=== PATIENT | male | born 1965 | race Hispanic/Latino ===

== ENCOUNTER 2023-11-01 15:00 | Inpatient (IN) | payer OTHER, BC ==
[~2023-11-01] VITALS: Ht 170.2 cm; Wt 97.6 kg
[2023-11-01 15:41] LABS: BASOPHILS # (AUTO) 0.04 K/uL (0.00-0.20); BASOPHILS % (AUTO) 0.4 % (0.0-5.0); EOSINOPHILS # (AUTO) 0.12 K/uL (0.00-0.70); EOSINOPHILS % (AUTO) 1.1 % (0.0-8.0); HEMATOCRIT 43.5 % (42-54); IMMATURE GRANULOCYTE ABSOLUTE 0.04 K/uL (0-1); LYMPHOCYTES # (AUTO) 2.1 K/uL (1.0-4.8); LYMPHOCYTES % (AUTO) 18.9 % (21.0-51.0); MEAN CORPUSCULAR HEMOGLOBIN 22.6 pg (27.0-33.0); MEAN CORPUSCULAR HGB CONC 30.3 g/dL (32.0-36.0); MEAN CORPUSCULAR VOLUME 74.6 fL (79-99); MONOCYTES % (AUTO) 9.5 % (3.0-13.0); NEUTROPHILS # (AUTO) 7.6 K/uL (1.8-7.7); NEUTROPHILS % (AUTO) 69.7 % (40.0-77.0); PLATELET COUNT (AUTO) 377 K/uL (130-400); RED BLOOD CELL COUNT(AUTO) 5.83 MIL/uL (4.50-6.20); RED CELL DISTRIBUTION WIDTH 18.4 % (11.0-15.5); WHITE BLOOD COUNT (AUTO) 10.8 K/uL (4.8-10.8)
[2023-11-01 15:46] LABS: APPEARANCE,URINE CLEAR (CLEAR); BILIRUBIN,URINE NEGATIVE (NEGATIVE); COLOR,URINE YELLOW (YELLOW); GLUCOSE, URINE (UA) NEGATIVE (NEGATIVE); KETONES,URINE NEGATIVE (NEGATIVE); LEUKOCYTE ESTERASE ,URINE NEGATIVE Leu/uL (NEGATIVE); NITRATE,URINE NEGATIVE (NEGATIVE); OCCULT BLOOD,URINE NEGATIVE (NEGATIVE); PH,URINE 5.5 (5.0-8.0); PROTEIN,URINE 20 mg/dL (NEGATIVE); UROBILINOGEN,URINE 0.2 mg/dL (0.2-1.0)
[2023-11-01 15:49] VITALS: BP 154/72; PULSE 76; RESP 16
[2023-11-01 15:51] LABS: ADD UA MICROSCOPIC YES
[2023-11-01 15:51] LABS: INR <= 0.93 (0.85-1.15); PROTHROMBIN TIME 10.4 SEC (9.6-11.6)
[2023-11-01 15:52] LABS: PARTIAL THROMBOPLASTIN TIME 28.6 SEC (26.3-35.5)
[2023-11-01 15:53] LABS: BACTERIA,URINE RARE /HPF (None Seen); CALCIUM OXALATE CRYSTALS,UR RARE /LPF (None Seen); MUCUS,URINE MOD LPF (None Seen); SQUAMOUS EPITHELIAL CELL,UR RARE /HPF (0-2)
[2023-11-01 15:55] LABS: ALBUMIN 3.7 g/dL (3.5-5.0); CREATININE 0.9 mg/dL (0.5-1.5)
[2023-11-01] MEDS ORDERED: HYDR12.54 PO (16:09)
[2023-11-03] VITALS (37 sets, daily range): BP systolic 103–159; BP diastolic 50–88; PULSE 54–84; RESP 11–22
[2023-11-03] MEDS: LACTATED RINGERS 1000ML 1,000 ML IV ONE
[2023-11-03] MEDS ORDERED: FENTANYL CITRATE PF 50 MCG/1 ML 2ML VIAL ONE ×3 (06:49→10:05)
[2023-11-03] MEDS ORDERED: MIDAZOLAM HCL 1 MG/ML 2ML VIAL ONE (06:49)
[2023-11-03] MEDS ORDERED: PROPOFOL 10 MG/ML 20ML VIAL IV ONE ×2 (06:59→07:24)
[2023-11-03] MEDS ORDERED: ROCURONIUM BROMIDE 10MG/1ML 5ML VL ONE ×2 (07:00→08:14)
[2023-11-03] MEDS ORDERED: LIDOCAINE 2%-EPI 1:200,000 20 ML VIAL IJ ONE (07:04)
[2023-11-03] MEDS ORDERED: ROPIVACAINE 0.5% 5MG/ML 30ML ONE (07:04)
[2023-11-03] MEDS: CLINDAMYCIN IVPB 900MG/50ML 50 ML IV ONE (07:16)
[2023-11-03] MEDS: TRANEXAMIC ACID 1000MG/10ML ONE (08:03)
[2023-11-03] MEDS: CEFAZOLIN SODIUM 1 GM VIAL ONE (08:10)
[2023-11-03] MEDS ORDERED: CEFAZOLIN SODIUM 1 GM VIAL ONE (08:16)
[2023-11-03] MEDS ORDERED: DEXAMETHASONE SOD PHOSPHATE 10MG/ML 1ML VIAL ONE (08:27)
[2023-11-03] MEDS ORDERED: ONDANSETRON 4MG INJ ONE (08:28)
[2023-11-03] MEDS ORDERED: KETAMINE 50MG/ML SYRINGE 50 MG/ML DISP.SYRIN ONE (08:56)
[2023-11-03] MEDS ORDERED: GLYCOPYRROLATE 0.2 MG/ML 5 ML VIAL ONE (09:43)
[2023-11-03] MEDS ORDERED: NEOSTIGMINE METHYLSULFATE 1MG/ML IV ONE (09:44)
[2023-11-03] MEDS ORDERED: CYCLOBENZAPRINE HCL 10 MG TABLET PO PRN (10:00)
[2023-11-03] MEDS ORDERED: POTASSIUM CHLORIDE 20MEQ/100ML 100 ML IV PRN (10:00)
[2023-11-03] MEDS ORDERED: KCL 20 MEQ ERTAB PO PRN (10:00)
[2023-11-03] MEDS ORDERED: TRAMADOL HCL 50 MG TABLET PO PRN (10:00)
[2023-11-03] MEDS ORDERED: FERROUS FUMARATE 324 MG TABLET PO PRN (10:00)
[2023-11-03] MEDS ORDERED: POTASSIUM CHLORIDE 10% ELIXIR 20 MEQ/15 ML UDCUP PO PRN (10:00)
[2023-11-03] MEDS ORDERED: CALCIUM CARB 500MG PO PRN (10:00)
[2023-11-03] MEDS ORDERED: DiphenhydrAMINE HCL 50 MG/ML VIAL IVP PRN (10:00)
[2023-11-03] MEDS ORDERED: ONDANSETRON 4MG INJ IVP PRN (10:00)
[2023-11-03] MEDS ORDERED: MAGNESIUM SULFATE 4.06 MEQ/ML ***TPN USE ONLY IJ ONE (10:07)
[2023-11-03] MEDS: ONDANSETRON 4MG INJ ONE (11:03)
[2023-11-03] MEDS: MEPERIDINE-PF 25 MG/ML SYG ONE ×2 (11:04→11:05)
[2023-11-03] MEDS: HYDROCODONE/ACETAMINOPHEN 10/325 MG TAB ONE (12:39)
[2023-11-03] MEDS: 0.9%NACL 50ML 50 ML IV ONE (15:30)
[2023-11-03] MEDS: CEFAZOLIN SODIUM 2 GM VIAL IVPB SCH (15:57)
[2023-11-03] MEDS: DOCUSATE SODIUM 100 MG CAP PO SCH (21:48)
[2023-11-03] MEDS: GABAPENTIN 100 MG CAPSULE PO SCH (21:49)
[2023-11-03] MEDS: HYDROCODONE/ACETAMINOPHEN 5/325 MG TAB PO PRN (21:49)
[2023-11-03] MEDS: 0.9%NACL 1000ML 1,000 ML IV SCH (21:51)
[2023-11-04] VITALS: BP 105/51; PULSE 63; RESP 18
[2023-11-04] MEDS: KETOROLAC 15MG/ML VIAL (15MG/ML) IV SCH (01:33)
[2023-11-04 04:00] VITALS: BP 113/57; PULSE 57; RESP 20
[2023-11-04 04:00] LABS: HEMATOCRIT 31.6 % (42-54); RED BLOOD CELL COUNT(AUTO) 4.39 MIL/uL (4.50-6.20); RED CELL DISTRIBUTION WIDTH 17.3 % (11.0-15.5); WHITE BLOOD COUNT (AUTO) 14.7 K/uL (4.8-10.8)
[2023-11-04 04:07] LABS: CREATININE 1.1 mg/dL (0.5-1.5); POTASSIUM 4.5 mmol/L (3.5-5.1)
[2023-11-04 08:00] VITALS: BP 125/66; PULSE 64; RESP 18
[2023-11-04] MEDS: HYDROCHLOROTHIAZIDE 25 MG TABLET PO SCH (08:18)
[2023-11-04] MEDS: POLYETHYLENE GLYCOL 3350 17 GM POWD.PACK PO SCH (08:19)
[2023-11-04] MEDS: ASPIRIN 325MG EC TAB PO SCH (08:19)
[2023-11-04 11:00] VITALS: BP 112/59; PULSE 72; RESP 18
[2023-11-04] MEDS: KETOROLAC 15MG/ML VIAL (15MG/ML) IV PRN (13:24)
[2023-11-04 16:00] VITALS: BP 126/72; PULSE 68; RESP 18
[2023-11-04 20:00] VITALS: BP 125/62; PULSE 79; RESP 20
[2023-11-05] VITALS: BP 114/70; PULSE 77; RESP 18
[2023-11-05 04:29] VITALS: BP_SYST 104; BP_SYST 113; BP_DIAS 56; BP_DIAS 57; PULSE 57; PULSE 69; RESP 18; RESP 20
[2023-11-05 08:00] VITALS: BP 109/62; PULSE 73; RESP 20
[2023-11-05] MEDS: LACTULOSE 20 GM/30 ML UDCUP PO ONE (11:04)
[2023-11-05 12:00] VITALS: BP 108/66; PULSE 85; RESP 20
[2023-11-05] MEDS ORDERED: CYCL-309 PO (12:00)
[2023-11-05] MEDS ORDERED: GABA100C PO (12:00)
[2023-11-05] MEDS ORDERED: DOCU-116 PO (12:00)
[2023-11-05] MEDS ORDERED: HYDR-4060 PO (12:00)
[2023-11-05] MEDS ORDERED: ASPI-891 PO (12:00)
[2023-11-06] MEDS ORDERED: BISACODYL 10 MG SUPP.RECT RC PRN (10:00)
== END 2023-11-05 15:30 | DRG 470 ==
LOC: DAHIP 11-03 05:57 → 4AH 11-03 16:45
PROVIDERS: ADMIT Student in an Organized Health Care Education/Training Program; ATTEND Student in an Organized Health Care Education/Training Program
PROC: 0SR906A Replacement of Right Hip Joint with Oxidized Zirconium on Polyethylene Synthetic Substitute, Uncemented, Open Approach (ICD-10-PCS; principal; 2023-11-03 08:17)
DX: M87.851 Other osteonecrosis, right femur (principal); D62 Acute posthemorrhagic anemia; M21.751 Unequal limb length (acquired), right femur
CPT/HCPCS: 36415; 73503; 73521; 80048; 81001; 82040; 84134; 85025; 85027; 85610; 85730; 86140; 87088; 87641; C1776; G0378; J0690; J1100; J1885; J2175; J2250; J2405; J2704; J2710; J2795; J3010; J3475; J3490; J7120; A4215; A4221; A4222; A4223; A4649; A4663; A4930; A5120; A6255; G0168

== ENCOUNTER 2024-10-25 18:31 | Emergency (ER) | payer BC, OTHER ==
[~2024-10-25] VITALS: Ht 172.7 cm; Wt 95.3 kg
[~2024-10-25 18:31] MED LIST: ASPI-891 PO; CYCL-309 PO; DOCU-116 PO; GABA100C PO; HYDR-4060 PO; HYDR12.54 PO
--- NOTE | 2024-10-25 19:54 | HMCIMG ---
Exam Type: CT cervical spine without contrast Clinical Information: severe right sided neck pain radiating to elbow Comparison: None Technique: Spiral axial images were performed from the base of the skull down to the thoracic vertebral bodies. Both sagittal and coronal reconstructions were performed. CT Dose Index (CTDI): 12.85 mGy Dose Length Product (DLP): 282.6 total Findings: There is normal alignment of the vertebral bodies. There are no fractures. No facet hypertrophy. The prevertebral soft tissues are normal. IMPRESSION: NORMAL CERVICAL SPINE CT. This study was performed using dose reduction techniques to include automated exposure control and/or adjustment of the mA and/or kV according to patient size.
--- NOTE | 2024-10-25 20:12 | ERN ---
ED Note History of Present Illness Stated Complaint: RIGHT SIDE PAIN Chief Complaint: Shoulder Injury/Pain Time Seen by MD: 19:09 Dictation: This is a 59-year-old male who stated that he fell as he was carrying a big package and tripped on a cement or concrete floor. This happened a few days ago and he had experienced some pain in the right shoulder and scapular area which got worse going all the way to the upper neck and the pain is radiating from the neck to the right elbow. He denied any loss of consciousness. No history of any anticoagulation therapy. No diplopia motor weakness or seizure activity Temperature 98.7 pulse 74 respirations 20 blood pressure 149/80 with a pulse oximetry of 98% on room air Allergies: Coded Allergies: cephalexin (Unverified Allergy, Unknown, 11/01/23) Home Meds Active Scripts Cyclobenzaprine HCl (Cyclobenzaprine HCl) 5 Mg Tablet, 1 TAB PO TIDP PRN for muscle spasms for 10 Days, #30 TAB 0 Refills Prov:SAUL NAVA MD 10/25/24 Ketorolac Tromethamine (Toradol) 10 Mg Tab, 10 MG PO QID for pain for 5 Days, #20 TAB 0 Refills Prov:SAUL NAVA MD 10/25/24 Prednisone (Prednisone) 20 Mg Tablet, 1 TAB PO AD for 6 Days, #14 TAB 0 Refills TAKE 1 TAB BY MOUTH THREE TIMES PER DAY X3 DAYS, THEN TAKE 1 TAB BY MOUTH TWICE A DAY X2 DAYS, THEN TAKE 1 TAB BY MOUTH ONCE A DAY X1 DAY. Prov:SAUL NAVA MD 10/25/24 Docusate Sodium (Colace) 100 Mg Capsule, 100 MG PO BID for 30 Days, #60 CAP 0 Refills Prov:DIAN LEON MD 11/05/23 Hydrocodone/Acetaminophen (Hydrocodon-Acetaminophen 5-325) 5 Mg-325 Mg Tablet, 1-2 TAB PO Q6H PRN for MODERATE/SEVERE PAIN LEVEL, #56 TAB 0 Refills Prov:DIAN LEON MD 11/05/23 Gabapentin (Neurontin) 100 Mg Capsule, 100 MG PO TID, #90 CAP 0 Refills Prov:DIAN LEON MD 11/05/23 Cyclobenzaprine HCl (Cyclobenzaprine HCl) 10 Mg Tablet, 5 MG PO Q8H PRN for MUSCLE SPASMS, #45 TAB 0 Refills Prov:DIAN LEON MD 11/05/23 Aspirin (Aspirin EC) 325 Mg Tablet.dr, 325 MG PO DAILY, #30 TAB 0 Refills Prov:DIAN LEON MD 11/05/23 Reported Medications Hydrochlorothiazide (Hydrochlorothiazide) 12.5 Mg Tablet, 12.5 MG PO DAILY, TAB 11/01/23 Past Medical History Past Medical History: No Pertinent History Surgical History: Other Surgical History Other: RT HIP REPLACEMENT Social History: Negative RN Note Reviewed/Agreed w/PFSH: Yes Review of System Dictation Constitutional: Negative for fever,chills, and weight loss Eyes: Negative for injury, pain,redness, and discharge ENT: Negative for injury,pain or swelling Cardiovascular: Negative for chest pain, palpitations, and edema Respiratory: Negative for shortness of breath, cough, and wheezing, Abdomen/GI: Negative for abdominal pain, nausea, vomiting, diarrhea, and con stipation Back: Negative for injury and pain : Negative for injury, bleeding and discharge MS/Extremity: Positive for injury to the right side of the shoulder Skin: Negative for rash, and discoloration Neuro: Negative for headache, weakness, numbness, tingling, and seizure Psych: Negative for suicide ideation, homicidal ideation, and hallucinations Initial Vital Sign VS Vital Signs Date Time Temp Pulse Resp B/P (MAP) Pulse Ox O2 Delivery O2 Flow Rate FiO2 10/25/24 18:57 98.8 74 20 149/80 99 0 10/25/24 20:37 Room Air* 21 Physical Exam Dictation General: awake, alert, NAD obese male Head/Face: Normocephalic, atraumatic Eyes: PERRL, EOMI, vision at baseline ENT: oral cavity clear, TMs clear, no signs of infection Neck: Trachea midline, supple, no nuchal rigidity short and thick neck Cardiovascular: RRR, normal S1/S2, No MRGs, no JVD Respiratory: CTAB, no respiratory distress, No rales or wheezes Abdomen: Soft, non-tender, non-distended, normal bowel sounds, no guarding or rebound. Skin: Warm, dry, normal turgor, no rash MS/Extremity: Pulses equal, no cyanosis, neurovascular intact, FROM pain of right upper extremity when he moves his neck and also exerts the shoulder. No abrasions lacerations ecchymosis or point tenderness noted Neuro: COAx4, GCS 15, strength 5/5, CN 2-12 intact, normal cerebellar exam, normal gait, Psych: Normal behavior, mood, and affect normal Extremities-trace edema without any palpable cords, Homans sign is negative Results (Laboratory/Radiology) Labs Reviewed?: Yes CT Scan Comment: PATIENT: ADI BURTON MR#: [id number] : 1965 SEX: M AGE: 59 LOCATION: [facility] ORDER 26 STATUS: [employer] REPORT#: [id number] SERVICE 24 REASON: severe right sided neck pain radiating to elbow ORDERING PHYSICIAN: SAUL NAVA MD PROCEDURE: C SPIN WO - CT CERVICAL SPINE W/O CONTRAST Exam Type: CT cervical spine without contrast Clinical Information: severe right sided neck pain radiating to elbow Comparison: None Technique: Spiral axial images were performed from the base of the skull down to the thoracic vertebral bodies. Both sagittal and coronal reconstructions were performed. CT Dose Index (CTDI): 12.85 mGy Dose Length Product (DLP): 282.6 total Findings: There is normal alignment of the vertebral bodies. There are no fractures. No facet hypertrophy. The prevertebral soft tissues are normal. IMPRESSION: NORMAL CERVICAL SPINE CT. This study was performed using dose reduction techniques to include automated exposure control and/or adjustment of the mA and/or kV according to patient size. DICTATED BY: DANTE SOLORIO MD DATE: 10/25/241951 ELECTRONICALLY SIGNED BY: DANTE SOLORIO MD DATE: 10/25/241953 ED Course ED Course Orders Procedure Category Date Status Time Ct Cervical Spine W/O CT 10/25/24 Resulted Contrast 19:25 Vital Signs Date Time Temp Pulse Resp B/P (MAP) Pulse Ox O2 Delivery O2 Flow Rate FiO2 10/25/24 20:37 98.8 74 20 149/80 99 Room Air* 0 21 10/25/24 18:57 98.8 74 20 149/80 99 0 We will perform advanced imaging and administer medications according to the patient's complaint. Once the results are available, will review and personally interpreted the labs to rule out any acute life-threatening emergency the trach require immediate intervention and treatment. I will then re-evaluate the patient after treatment and diagnostic exams have return to determine whether the patient requires any further testing, can safely be discharged home or need further admission to hospital for additional treatment and evaluation. CT scan of the C-spine done showed completely normal study. I went over the results with the patient and his spouse and possibly a neuropathic type of pain or musculoskeletal type of pain. DC with a trial of NSAID steroid and muscle relaxant Medical Decision Making MDM MDM: Differential diagnosis: Arthritis, fracture, cervical spondylosis, cervical radiculopathy, contusion Rationale: Tests considered and ordered secondary to shared decision making include: Previous outside records reviewed: Old ER visits. Risk of complication and/or morbidity or mortality of patient management: None Medications-Per medication reconciliation Need for hospitalization: Patient does not meet criteria for hospitalization. Need for emergency major/minor surgery: No There are no social concerns with this patient. Prescription drug management Prescriptions will include symptomatic care Patient's prior external medical records from other ER visits were reviewed by renetta whitehead as indicated. Prior testing and results from previous visits were reviewed. Prior tests were taken into account with medical decision making and resource utilization, independent historian/historians were used to obtain complete medical history. I independently interpreted the test that were performed, results were reviewed by me and considered findings on radiology if ordered. Medical management and examination interpretation discussions were had by me with other qualified healthcare professionals as indicated for the patient's care. Problem List Problem List: (1) Cervical paraspinal muscle spasm (2) Cervical radiculopathy DX & DISP Disposition: Discharge Departure Impression: Primary Impression: Cervical radiculopathy Additional Impression: Cervical paraspinal muscle spasm Condition: Stable Scripts Cyclobenzaprine HCl (Cyclobenzaprine HCl) 5 Mg Tablet 1 TAB PO TIDP PRN for muscle spasms for 10 Days, #30 TAB 0 Refills Prov: SAUL NAVA MD 10/25/24 Ketorolac Tromethamine (Toradol) 10 Mg Tab 10 MG PO QID for pain for 5 Days, #20 TAB 0 Refills Prov: SAUL NAVA MD 10/25/24 Prednisone (Prednisone) 20 Mg Tablet 1 TAB PO AD for 6 Days, #14 TAB 0 Refills TAKE 1 TAB BY MOUTH THREE TIMES PER DAY X3 DAYS, THEN TAKE 1 TAB BY MOUTH TWICE A DAY X2 DAYS, THEN TAKE 1 TAB BY MOUTH ONCE A DAY X1 DAY. Prov: SAUL NAVA MD 10/25/24 Additional Instructions: Patient and the caregiver have been informed of all the diagnostic tests and the imaging conducted during the today's visit to the emergency room and has verbalized understanding of the results I have personally reviewed and interpreted all diagnostic exams performed here in the ER today as well as the vital signs documented by the nursing staff. The patient is now being discharged to home and should follow up with the primary care physician or the specialist as directed by the ER staff. Follow-up with primary care provider in 1 to 2 days. Take medications as directed here in the emergency room. Okay to continue home medications unless otherwise discussed during your visit in the emergency room today. Return to your nearest emergency room if symptoms worsen or if there is no improvement. Call 911 if you need immediate assistance. Take Tylenol or Motrin [id number] as needed and if no contraindications are present. Increase oral hydration. A wound culture or urine culture was ordered here in the [facility] room department please follow-up with primary care provider and advise them to get repeat ports from our facility. If you had any [place] wrap/splints that were applied here, please do not remove them until you see your primary care or specialty. Referrals: KALEB BRYANT (PCP) SAUL NAVA MD Oct 25, 2024 20:12
[2024-10-25] MEDS ORDERED: PRED20TA3 PO (20:20)
[2024-10-25] MEDS ORDERED: CYCL5TAB3 PO (20:20)
[2024-10-25] MEDS ORDERED: KETO10 PO (20:20)
[2024-10-25 20:37] VITALS: BP 149/80; PULSE 74; RESP 20; TEMP 98.7; O2SAT 99
== END 2024-10-25 20:48 | disposition home or self-care (01) ==
LOC: EDH 18:31
DX: M54.12 Radiculopathy, cervical region (principal); M62.838 Other muscle spasm; Z79.82 Long term (current) use of aspirin; Z79.899 Other long term (current) drug therapy; Z88.1 Allergy status to other antibiotic agents; Z96.641 Presence of right artificial hip joint
CPT/HCPCS: 72125; 99284